=== PATIENT | male | born 1970 | race Caucasian/White ===

== ENCOUNTER 2016-08-08 10:42 | Emergency (ER) | payer OTHER ==
--- NOTE | ~2016-08-08 | CT71 ---
[facility] A Service of [facility] & [facility] RADIOLOGY TEXT RESULTS PATIENT: ERIC DELGADO LOCATION: SED : 74 UNIT #: [id number] AGE: [address]: Arely Husain APRN SEX: M ORDER DR: [id number] [place] [id number] MR#: [id number] #: [id number] NAME: ERIC DELGADO. : 1970 SEX: M STUDY DATE/TIME: 08/08/2016 11:13 UNIT: SED ROOM: STUDY DESCRIPTION: CT Head Wo Contrast Attending Physician: Arely Husain A.P.R.N. Ordering Physician: Arely Husain A.P.R.N. Primary Care Physician: Primary Care Physician No MEDICAL IMAGING REPORT This report is preliminary unless electronic signature is present. EXAM Head CT without HISTORY Ears are ringing, headache, vomiting started this morning. Ears ringing for 3 days, headache is all over. No cancer history. COMMENT Routine noncontrast head CT is reviewed. No previous. This CT exam was performed with one or more of the following radiation dose reduction techniques: Automatic exposure control, adjustment of mA and/or kV according to patient size, and iterative reconstruction. There is extensive sinus disease with complete opacification of the visualized maxillary sinuses, left sphenoid sinus, near-complete opacification of ethmoid air cells right greater than left and near-complete opacification of left frontal sinus. Areas of wall thickening in the paranasal sinuses consistent with chronic osteitis. Milder mucosal thickening in the right sphenoid sinus. There is also complete opacification of the right-sided mastoid air cells and near-complete opacification right middle ear. Please correlate for clinical evidence of acute sinusitis and otomastoiditis. If there is concern for meningitis, correlation with CSF sampling would be indicated. No sotero bone destruction is appreciated on noncontrast head CT. There is no evidence for acute intracranial hemorrhage or extraaxial fluid collection. The ventricles are normal in size and configuration, and the rodriguez-white junction is well maintained. No acute cortical infarct. No intracranial mass effect. Basilar cisterns are patent. IMPRESSION 1. Severe paranasal sinus disease with evidence of at least a STS. [facility] A Service of [facility] RADIOLOGY TEXT RESULTS PATIENT: ERIC DELGADO [place] [facility] [place] 74 [place]IT #: [id number] AGE: [address]: Arely Husain INS[employer]ANCE POLICY CLERK SEX: M ORDER DR: component of chronic sinusitis. Complete opacification of the left sphenoid sinus and visualized maxillary sinus is noted. Also complete opacification of the right side mastoid air cells and near-complete opacification of the middle ear. Please correlate for clinical evidence of acute sinusitis and/or otomastoiditis. Findings certainly a possible source of the patient's headache and ear complaints. Additionally, if there is clinical concern for meningitis, CSF sampling is recommended. Evaluation of the brain itself is unremarkable on noncontrast head CT. Dictated by... Roselia Gutierrez M.D. THIS IS AN ELECTRONICALLY VERIFIED REPORT Roselia Gutierrez M.D. at 08/09/2016 11:38 AM GISEL/franki TD: 08/08/2016 23:25 JOB #: [id number] MEDICAL IMAGING REPORT
[~2016-08-08 10:42] MED LIST: FLEXERIL PO; IBUPROFEN PO; LEVOXYL200 MCG PO
[2016-08-08 12:19] LABS: BASOPHIL# 0.1 X10e3 (0-0.3); BASOPHIL% 0.3 % (0-2.5); EOSINOPHIL# 0.3 X10e3 (0-0.7); EOSINOPHIL% 1.6 % (0.0-7.0); HEMATOCRIT 47.5 % (38.0-50.0); HEMOGLOBIN 15.8 gm/dL (13.0-16.0); LYMPHOCYTE# 1.4 X10e3 (1.0-3.5); LYMPHOCYTE% 7.6 % (17.0-45.0); MEAN CELL VOLUME 92.5 FL (83-96); MEAN CORPUSCULAR HEMOGLOBIN 30.7 PG (28-34); MEAN CORPUSCULAR HGB CONC 33.2 g/dL (30-36); MEAN PLATELET VOLUME 8.3 FL (6.5-11.5); MONOCYTE# 0.8 X10e3 (0-1.0); MONOCYTE% 4.2 % (3.0-12.0); NEUTROPHIL# 15.7 X10e3 (1.5-7.1); NEUTROPHIL% 86.3 % (40-75); PLATELET COUNT 252 X10e3 (140-420); RED BLOOD COUNT 5.13 X10e (3.90-5.60); RED CELL DISTRIBUTION WIDTH 13.4 % (11.0-15.5); WHITE BLOOD COUNT 18.2 X10e3 (4.0-10.5)
[2016-08-08 12:21] LABS: DIFF IND NO
[2016-08-08 12:33] LABS: ALBUMIN SERUM 4.7 g/dL (3.5-5.0); ALKALINE PHOSPHATASE 77 U/L (32-92); ALT (SGPT) 32 U/L (10-40); AST (SGOT) 25 U/L (10-42); BILIRUBIN,TOTAL 0.6 mg/dL (0.2-2.0); BLOOD UREA NITROGEN 15 mg/dL (9-23); BUN/CREATININE RATIO 21.42; CARBON DIOXIDE 27 mmol/L (22-31); CHLORIDE 103 mmol/L (100-111); CREATININE SERUM 0.7 mg/dL (0.6-1.4); GLOM FILT RATE Estimated ABOVE60 mL/min (>60); GLUCOSE FASTING 106 mg/dL (70-110); PROTEIN TOTAL SERUM 7.9 g/dL (6.0-8.3); SODIUM 137 mmol/L (135-145)
[2016-08-08 12:51] LABS: CALCIUM SERUM 9.4 mg/dL (8.4-10.2)
== END 2016-08-08 13:39 | disposition home or self-care (01) ==
LOC: SED 10:42
PROVIDERS: Nurse Practitioner
DX: J32.4 Chronic pansinusitis (principal); F17.200 Nicotine dependence, unspecified, uncomplicated; Z98.890 Other specified postprocedural states
CPT/HCPCS: 36415; 70450; 80053; 85025; 96365; 96375; 99284; C9113; J1100; J1200; J1885; J2765

== ENCOUNTER 2017-01-09 14:47 | Emergency (ER) | payer OTHER ==
[~2017-01-09] VITALS: Ht 177.8 cm; Wt 104.3 kg
[2017-01-09 15:12] LABS: URINE SOURCE CLEAN CATCH
[2017-01-09 15:15] LABS: URINE APPEARANCE SL CLOUDY; URINE BILIRUBIN NEG (NEG); URINE BLOOD 3+ (NEG); URINE COLOR YELLOW; URINE GLUCOSE NEG (NORM); URINE KETONE TRACE (NEG); URINE LEUKOCYTE ESTERASE 2+ (NEG); URINE NITRATE POS (NEG); URINE PH 5.5 (5-8); URINE PROTEIN NEG (NEG); URINE SPECIFIC GRAVITY >=1.030 (1.003-1.035); URINE UROBILINOGEN 0.2 MG/DL (NORM)
[2017-01-09 15:24] LABS: MICRO INDICATED? YES
[2017-01-09 15:26] LABS: CULTURE INDICATED? YES; URINE BACTERIA 2+ (NEG); URINE SQUAMOUS EPITHELIAL CELL FEW /[HPF]
[2017-01-11 16:44] LABS: CHLAMYDIA TRACH Not Detected (Not Detected); N GONOR Not Detected (Not Detected)
== END 2017-01-09 15:50 | disposition home or self-care (01) ==
LOC: SED 14:47
PROVIDERS: Emergency Medicine
DX: N30.01 Acute cystitis with hematuria (principal); F17.200 Nicotine dependence, unspecified, uncomplicated
CPT/HCPCS: 81003; 87086; 87088; 87186; 87491; 87591; 99284

== ENCOUNTER 2017-02-11 10:01 | Emergency (ER) | payer OTHER ==
[~2017-02-11] VITALS: Ht 180.3 cm; Wt 104.3 kg
--- NOTE | ~2017-02-11 | CT4 ---
[facility] A Service of [facility] & [facility] RADIOLOGY TEXT RESULTS PATIENT: ERIC DELGADO LOCATION: SED : 74 UNIT #: [id number] AGE: [address]: Rojelio Rider MD SEX: M ORDER DR: [id number] [place] [id number] E MR#: [id number] Acc #: [id number] NAME: ERIC DELGADO. : 1970 SEX: M STUDY DATE/TIME: 02/11/2017 12:02 UNIT: SED ROOM: STUDY DESCRIPTION: CT Abd and Pelv Wo Cont Attending Physician: Rojelio Rdier M.D. Ordering Physician: Rojelio Rider M.D. Primary Care Physician: No Primary Care Physician MEDICAL IMAGING REPORT This report is preliminary unless electronic signature is present. EXAM CT abdomen and pelvis without contrast, 02/11/2017, 1202 hours. CLINICAL HISTORY 46-year-old man complaining of 2-week history of left lower quadrant abdominal pain. COMPARISON None. TECHNIQUE Helical noncontrasted images were obtained from the lung bases through the pubic symphysis. Sagittal and coronal reconstructions were performed. No oral or intravenous contrast was administered. Total exam DLP 1538 mGy-cm. This CT exam was performed with one or more of the following radiation dose reduction techniques: automatic exposure control, adjustment of mA and/or kV according to patient size, and iterative reconstruction. FINDINGS Images through the lung bases are clear. There are no effusions. The distal esophagus is normal. Noncontrasted images through the abdomen demonstrate a normal appearance to the liver, spleen and pancreas. The bile ducts are normal. The gallbladder is contracted and contains multiple small stones. No gallbladder wall thickening is seen. The adrenal glands are normal. 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 There is no renal mass or stone. There is no ureterectasis or ureteral calculus. Right-sided pelvic phleboliths are present. The stomach is contracted and unopacified. It does appear normal. [facility] A Service of [facility] & [facility] RADIOLOGY TEXT RESULTS PATIENT: ERIC DELGADO LOCATION: SED : 74 UNIT #: [id number] AGE: [address]: Rojelio Rider MD SEX: M ORDER DR: is no small bowel distension or small bowel wall thickening. The appendix is normal. The colon is nondistended. Question is raised of a segment of wall thickening at the junction of descending colon and sigmoid colon which extends over more than 8 cm in length which would favor the presence of colitis over malignancy. There is no evidence of diverticular disease. No pericolonic stranding. The rectum is decompressed with normal wall thickness. CT pelvis demonstrates a normal appearance to the bladder, seminal vesicles and prostate. No hernias are seen. Bone window images demonstrate minimal degenerative disc disease in the lower lumbar spine. There is no fracture. IMPRESSION 1. There is a fairly long segment of suggested colonic wall thickening in the sigmoid colon beginning at the junction with descending colon extending to the mid sigmoid colon greater than 8 cm in length. This area is distended with air suggesting this is a true finding. There is no evidence of diverticulosis, pericolonic stranding, fluid or fluid collection. The appearance favors colitis. Infectious or inflammatory changes are favored. I would suggest treatment for colitis with followup air-contrast enema if not recently performed. 2. Cholelithiasis with contracted gallbladder. No evidence of cholecystitis. 3. 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 Dictated by... Sonya Fletcher M.D. THIS IS AN ELECTRONICALLY VERIFIED REPORT Sonya Fletcher M.D. at 02/12/2017 5:21 PM [place] TD: 02/11/2017 15:28 JOB #: [id number] MEDICAL IMAGING REPORT Page 1 of 1
[2017-02-11] MEDS ORDERED: KCL PO (10:18)
[2017-02-11] MEDS ORDERED: LEVOXYL200 MC1 PO (10:18)
[2017-02-11] MEDS ORDERED: DIOVAN HCT 3201 EACH PO (10:19)
[2017-02-11] MEDS ORDERED: ZYRTEC10 M2 PO (10:19)
[2017-02-11] MEDS ORDERED: HYDROCODON-ACE1 EAC9 PO (10:19)
[2017-02-11] MEDS ORDERED: BYSTOLIC5 MG PO (10:20)
[2017-02-11 10:44] LABS: URINE APPEARANCE CLEAR; URINE BILIRUBIN NEG (NEG); URINE COLOR YELLOW; URINE GLUCOSE NEG (NORM); URINE KETONE NEG (NEG); URINE LEUKOCYTE ESTERASE NEG (NEG); URINE NITRATE NEG (NEG); URINE PH 5.5 (5-8); URINE PROTEIN NEG (NEG); URINE SOURCE CLEAN CATCH; URINE UROBILINOGEN 0.2 MG/DL (NORM)
[2017-02-11 10:45] LABS: MICRO INDICATED? NO; URINE BLOOD NEG (NEG)
[2017-02-11 10:55] LABS: BASOPHIL# 0.1 X10e3 (0-0.3); BASOPHIL% 1.3 % (0-2.5); EOSINOPHIL# 0.6 X10e3 (0-0.7); EOSINOPHIL% 6.8 % (0.0-7.0); HEMATOCRIT 47.4 % (38.0-50.0); HEMOGLOBIN 16.3 gm/dL (13.0-16.0); LYMPHOCYTE# 2.1 X10e3 (1.0-3.5); LYMPHOCYTE% 23.8 % (17.0-45.0); MEAN CELL VOLUME 92.9 FL (83-96); MEAN CORPUSCULAR HEMOGLOBIN 31.9 PG (28-34); MEAN CORPUSCULAR HGB CONC 34.3 g/dL (30-36); MEAN PLATELET VOLUME 8.1 FL (6.5-11.5); MONOCYTE# 0.7 X10e3 (0-1.0); MONOCYTE% 7.9 % (3.0-12.0); NEUTROPHIL# 5.4 X10e3 (1.5-7.1); NEUTROPHIL% 60.2 % (40-75); PLATELET COUNT 223 X10e3 (140-420); RED CELL DISTRIBUTION WIDTH 13.3 % (11.0-15.5); WHITE BLOOD COUNT 8.9 X10e3 (4.0-10.5)
[2017-02-11 10:56] LABS: DIFF IND NO
[2017-02-11 11:21] LABS: ALBUMIN SERUM 4.4 g/dL (3.5-5.0); BILIRUBIN, DIRECT 0.1 mg/dL (0.0-0.2); BILIRUBIN,INDIRECT 0.7 mg/dL (0.0-0.9); BILIRUBIN,TOTAL 0.8 mg/dL (0.2-2.0); BUN/CREATININE RATIO 28.75; CALCIUM SERUM 9.3 mg/dL (8.4-10.2); CREATININE SERUM 0.8 mg/dL (0.6-1.4); GLOM FILT RATE Estimated 108.7 mL/min (>60); PROTEIN TOTAL SERUM 7.4 g/dL (6.0-8.3)
== END 2017-02-11 14:11 | disposition home or self-care (01) ==
LOC: SED 10:01
PROVIDERS: Emergency Medicine
DX: K52.9 Noninfective gastroenteritis and colitis, unspecified (principal); F17.200 Nicotine dependence, unspecified, uncomplicated; Z79.899 Other long term (current) drug therapy
CPT/HCPCS: 36415; 74176; 80048; 80076; 81003; 83690; 85025; 96361; 96365; 96375; 99284; J1885; J1956; J2405